=== PATIENT | male | born 1995 | race Two or more races ===

== ENCOUNTER 2016-10-02 18:30 | Emergency (ER) | payer BC, OTHER ==
[2016-10-02 19:07] VITALS: BP 134/72
[2016-10-02] MEDS ORDERED: Naproxen TAB* 250 MG PO ONE (19:14)
--- NOTE | 2016-10-02 20:11 | UC ---
Lower Extremity/Ankle HPI - History of Current Complaint Chief Complaint: UCLowerExtremity Stated Complaint: LEG PAIN - Allergies/Home Medications Allergies/Adverse Reactions: Allergies Allergy/AdvReac Type Severity Reaction Status Date / Time No Known Allergies Allergy Verified 10/02/16 19:07 PMH/Surg Hx/FS Hx/Imm Hx Endocrine History Of: Denies: Diabetes, Thyroid Disease Cardiovascular History Of: Denies: Cardiac Disorders, Hypertension Respiratory History Of: Denies: COPD, Asthma GI/ History Of: Denies: Ulcer - Surgical History Surgical History: Yes Surgery Procedure, Year, and Place: appy - Social History Alcohol Use: Weekly Substance Use Type: None Smoking Status (MU): Unknown if Ever Smoked Physical Exam Vital Signs: Initial Vital Signs Temp 98.2 F 10/02/16 19:01 Pulse 64 10/02/16 19:01 Resp 18 10/02/16 19:01 BP 134/72 10/02/16 19:01 Pulse Ox 98 10/02/16 19:01 Discharge - Discharge Plan Condition: Stable Disposition: HOME Prescriptions: Naproxen TAB* [Naprosyn 250 mg TAB*] 500 mg PO BID PRN #30 tab PRN Reason: Pain Patient Education Materials: Muscle Strain (ED), Core Strengthening Exercises ( GEN) Referrals: Megha Tovar MD [Medical Doctor] - 2 Days
--- NOTE | 2016-10-02 20:12 | UC ---
Lower Extremity/Ankle HPI - HPI Summary HPI Summary: left thigh pain-has been going on for 3 days but is getting better every day began after he increase the amount of running he was doing - History of Current Complaint Hx Obtained From: Patient Onset/Duration: Sudden Onset, Lasting Days, Resolved - getting better but not completely gone Severity Initially: Moderate Severity Currently: Mild Pain Intensity: 5 Pain Scale Used: 0-10 Numeric Aggravating Factor(s): Standing, Ambulation Alleviating Factor(s): Rest, OTC Meds Able to Bear Weight: Yes <Huong Viera - Last Filed: 10/02/16 22:19> <Princess Weems - Last Filed: 10/03/16 07:25> - History of Current Complaint Chief Complaint: UCLowerExtremity Stated Complaint: LEG PAIN Time Seen by Provider: 10/02/16 19:15 - Allergies/Home Medications Allergies/Adverse Reactions: Allergies Allergy/AdvReac Type Severity Reaction Status Date / Time No Known Allergies Allergy Verified 10/02/16 19:07 PMH/Surg Hx/FS Hx/Imm Hx Previously Healthy: Yes Endocrine History Of: Denies: Diabetes, Thyroid Disease Cardiovascular History Of: Denies: Cardiac Disorders, Hypertension Respiratory History Of: Denies: COPD, Asthma GI/ History Of: Denies: Ulcer - Surgical History Surgical History: Yes Surgery Procedure, Year, and Place: appy - Family History Known Family History: Positive: None Family History: no cardiovascular issues in family lineage - Social History Occupation: Student Lives: With Family Alcohol Use: Weekly Substance Use Type: None Smoking Status (MU): Unknown if Ever Smoked <Huong Viera - Last Filed: 10/02/16 22:19> Review of Systems Constitutional: Negative Skin: Negative Eyes: Negative ENT: Negative Respiratory: Negative Cardiovascular: Negative Gastrointestinal: Negative Genitourinary: Negative Motor: Negative Neurovascular: Negative Musculoskeletal: Myalgia - left medial lateral thigh Neurological: Negative Psychological: Negative All Other Systems Reviewed And Are Negative: Yes <Huong Viera - Last Filed: 10/02/16 22:19> Physical Exam Triage Information Reviewed: Yes Appearance: Well-Appearing, No Pain Distress, Well-Nourished Vital Signs: Initial Vital Signs Temp 98.2 F 10/02/16 19:01 Pulse 64 05/20/17 19:01 Resp 18 10/02/16 19:01 BP 134/72 10/02/16 19:01 Pulse Ox 98 10/02/16 19:01 Vital Signs Reviewed: Yes Eye Exam: Normal Eyes: Positive: Conjunctiva Clear ENT Exam: Normal ENT: Positive: Normal ENT inspection, Hearing grossly normal. Negative: Nasal congestion, Nasal drainage, Trismus, Muffled/hoarse voice Dental Exam: Normal Neck exam: Normal Neck: Positive: Supple, Nontender, No Lymphadenopathy Respiratory Exam: Normal Respiratory: Positive: Chest non-tender, Lungs clear, Normal breath sounds, No respiratory distress, No accessory muscle use Cardiovascular Exam: Normal Cardiovascular: Positive: RRR, No Murmur, Pulses Normal, Brisk Capillary Refill Musculoskeletal Exam: Normal Musculoskeletal: Positive: Strength Intact, ROM Intact, No Edema Neurological Exam: Normal Neurological: Positive: Alert, Muscle Tone Normal Psychological Exam: Normal Skin Exam: Normal <Huong Viera - Last Filed: 10/02/16 22:19> Vital Signs: Initial Vital Signs Temp 98.2 F 10/02/16 19:01 Pulse 64 10/02/16 19:01 Resp 18 10/02/16 19:01 BP 134/72 10/02/16 19:01 Pulse Ox 98 10/02/16 19:01 <Princess Weems - Last Filed: 10/03/16 07:25> Lower Extremity Course/Dx - Course Course Of Treatment: d/c ibuprofen change to Naproxen---follow with sports medicine , physical therapy---decrease exercise regimem until pain resolves--- follow with pcp - Differential Dx/Diagnosis Differential Diagnosis/HQI/PQRI: Fracture (Closed), Sprain, Strain Provider Diagnoses: Left ham string strain <Huong Viera - Last Filed: 10/02/16 22:19> Discharge <Huong Viera - Last Filed: 10/02/16 22:19> <Princess Weems - Last Filed: 10/03/16 07:25> - Discharge Plan Condition: Stable Disposition: HOME Prescriptions: Naproxen TAB* [Naprosyn 250 mg TAB*] 500 mg PO BID PRN #30 tab PRN Reason: Pain Patient Education Materials: Muscle Strain (ED), Core Strengthening Exercises ( GEN) Referrals: MacQueen,Megha, MD [Medical Doctor] - 2 Days Attestation Statement User Type: Provider - I was available for consult. This patient was seen by the [facility]. The patient was not presented to, seen by, or examined by me. -Kristen <Princess Weems - Last Filed: 10/03/16 07:25>
== END 2016-10-02 19:40 | disposition home or self-care (01) ==
LOC: UCEAST 18:30
DX: S76.812A Strain of other specified muscles, fascia and tendons at thigh level, left thigh, initial encounter (principal); X58.XXXA Exposure to other specified factors, initial encounter; Y93.02 Activity, running; Y92.9 Unspecified place or not applicable
CPT/HCPCS: 99212; A9270-GY; G0463